=== PATIENT | male | born 1990 | race Caucasian/White ===

== ENCOUNTER 2017-01-13 14:21 | Emergency (ER) | payer BC ==
[2017-01-13 14:52] VITALS: BP 139/89
--- NOTE | 2017-01-13 15:06 | UC ---
Back Pain HPI - HPI Summary HPI Summary: 26 yo male with intermittent right low back pain associated with right lateral calf pain x 1 month 5 days ago bent over and felt pop now pain constant no bowel or bladder dysfunction - History of Current Complaint Chief Complaint: UCLowerExtremity Stated Complaint: LOWER BACK/RIGHT HIP PAIN Time Seen by Provider: 01/13/17 14:54 Hx Obtained From: Patient Onset/Duration: Gradual Onset, Lasting Weeks, Worse Since - x 4-5 days Timing: Constant - x 4-5 days Severity Initially: Mild Severity Currently: Moderate Pain Intensity: 3 - worse with movement/bending Pain Scale Used: 0-10 Numeric Back Pain: Is Discrete @ - right buttock, Radiates To - right lat calf Character: Aching, Burning Aggravating: Movement, Lifting, Bending Alleviating: Rest Associated Signs And Symptoms: Positive: Negative - Allergies/Home Medications Allergies/Adverse Reactions: Allergies Allergy/AdvReac Type Severity Reaction Status Date / Time No Known Allergies Allergy Verified 01/13/17 14:52 Home Medications: Home Medications NK [No Home Medications Reported] 01/13/17 [History Confirmed 01/13/17] PMH/Surg Hx/FS Hx/Imm Hx Previously Healthy: Yes - Surgical History Surgical History: Yes Surgery Procedure, Year, and Place: bilat meniscus repair 2000 and 2002 - Family History Known Family History: Negative: Cardiac Disease, Hypertension, Diabetes - Social History Alcohol Use: Rare Substance Use Type: None Smoking Status (MU): Never Smoked Tobacco Review of Systems Constitutional: Negative Skin: Negative Eyes: Negative ENT: Negative Respiratory: Negative Cardiovascular: Negative Gastrointestinal: Negative Genitourinary: Negative Motor: Negative Neurovascular: Negative Musculoskeletal: Myalgia Neurological: Negative Psychological: Negative All Other Systems Reviewed And Are Negative: Yes Physical Exam Triage Information Reviewed: Yes Appearance: Well-Appearing, No Pain Distress, Well-Nourished Vital Signs: Initial Vital Signs Temp 98.3 F 01/13/17 14:48 Pulse 60 01/13/17 14:48 Resp 14 01/13/17 14:48 BP 139/89 01/13/17 14:48 Pulse Ox 99 01/13/17 14:48 Eyes: Positive: Conjunctiva Clear ENT: Positive: Hearing grossly normal. Negative: Nasal congestion, Nasal drainage, Tonsillar exudate, Muffled/hoarse voice Respiratory: Positive: Lungs clear, Normal breath sounds, No respiratory distress, No accessory muscle use Cardiovascular: Positive: RRR, No Murmur Musculoskeletal: Positive: ROM Intact, No Edema Neurological: Positive: Alert Psychological Exam: Normal Skin Exam: Normal Back Pain Course/Dx - Differential Dx/Diagnosis Provider Diagnoses: right sciatica. suspect piriformis syndrome. DDD lower thoraic spine Discharge - Discharge Plan Condition: Stable Disposition: HOME Patient Education Materials: Degenerative Disc Disease (ED), Sciatica (ED), Piriformis Syndrome (ED) Forms: *Work Release Referrals: Elias Mireles MD [Primary Care Provider] - Additional Instructions: you need to see a broom bundler in follow up about your back if it does not improve if symptoms persist or worsen you may need an MRI I suggest you see PT you may have piriformis syndrome you BP needs to be followed as well recheck here for new or worsening symptoms Images Front/Back of Body, Lg (Randall): 1 - pain here 2 - radiates here
--- NOTE | 2017-01-13 16:21 | RAD ---
INDICATION: Acute right sciatica. COMPARISON: There are no prior studies available for comparison. TECHNIQUE: 5 views of the lumbar spine were obtained including lateral, oblique, AP and a coned-down lateral view of the lumbar sacral junction. FINDINGS: There is a mild lumbar scoliosis convex toward the left side. The vertebra are otherwise in normal alignment. No fracture is seen. There is moderate disc space narrowing and mild endplate hypertrophic changes at the L1-L2 and L2-L3 levels and mild disc space narrowing at the L4-L5 level. IMPRESSION: MILD TO MODERATE DEGENERATIVE DISC DISEASE.
== END 2017-01-13 16:14 | disposition home or self-care (01) ==
LOC: UCCORT 14:21
DX: M54.31 Sciatica, right side (principal); M51.34 Other intervertebral disc degeneration, thoracic region
CPT/HCPCS: 72110; 99212; G0463